=== PATIENT | female | born 1955 | race Caucasian/White ===

== ENCOUNTER 2016-06-16 12:23 | Emergency (ER) | payer OTHER ==
[2016-06-16] MEDS ORDERED: Acetaminophen 500 MG TAB ONE (13:03)
[2016-06-16] MEDS ORDERED: Adacel (T-DAP) 0.5 ML VIAL ONE (13:03)
[2016-06-16] MEDS ORDERED: ceFAZolin Sodium 1 GM VIAL ONE (13:05)
[2016-06-16] MEDS ORDERED: Sodium Chloride 0.9% 100 ML ONE (13:06)
[2016-06-16] MEDS ORDERED: Lidocaine 1% 20 ML MDV ONE (14:12)
[2016-06-16] MEDS ORDERED: Lidocaine 1% w/Epinephrine 1:100K 20 ML VIAL ONE (14:12)
[2016-06-16] MEDS ORDERED: Sodium Bicarbonate 2.4 MEQ/5 ML ONE (14:13)
[2016-06-16] MEDS ORDERED: Bacitracin Zinc 1 Packet ONE (15:55)
== END 2016-06-16 16:15 | disposition home or self-care (01) ==
LOC: NAV ERS 12:23
DX: S91.311A Laceration without foreign body, right foot, initial encounter (principal); Z79.899 Other long term (current) drug therapy; W45.8XXA Other foreign body or object entering through skin, initial encounter
CPT/HCPCS: 12042; 90471; 90715; 96365; J0690; J2001